=== PATIENT | male | born 1945 | race Caucasian/White ===

== ENCOUNTER 2018-02-27 06:02 | Day surgery (SDC) | payer MEDICARE, BC ==
--- NOTE | 2018-02-26 10:35 | PCM.PREANE ---
Preanesthetic Assessment - Anesthesia/Transfusion/Family Hx Anesthesia History: Prior Anesthesia Without Reaction Family History of Anesthesia Reaction: No Transfusion History: No Prior Transfusion(s) Intubation History: Unknown - Review of Systems General: No Symptoms Pulmonary: No Symptoms (Former smoker:quit in 1971/ETOH occasionally) Cardiovascular: No Symptoms (History of HTN:) Gastrointestinal: No Symptoms (occasional GERD) Neurological: No Symptoms (History of back pain: from left knee pain that resides up to sciatica to back), Dizziness (History of vertigo), Headache ( migraines), Numbness (bilateral toes.), Tingling (History of sciatica) Other: Reports: None (CKD;history of lithrotripsy), Easy Bruising, Diabetes (AM blood sugar: 0636 =149), Sinus Problem (seasonal allergies), Neck Pain (History of cervicalgia) - Physical Assessment NPO Status Date: 02/26/18 NPO Status Time: 22:30 Pulse: 73 O2 Sat by Pulse Oximetry: 97 Respiratory Rate: 16 Blood Pressure: 148/87 Temperature: 36.2 C Height: 1.7 m Weight: 80 kg ASA Class: 2 Mental Status: Alert & Oriented x3 Airway Class: Mallampati = 2 Dentition: Reports: Normal Dentition, Broken Tooth/Teeth, Caries Thyro-Mental Finger Breadths: 3 Mouth Opening Finger Breadths: 3 ROM/Head Extension: Full Lungs: Clear to Auscultation, Normal Respiratory Effort Cardiovascular: Regular Rate, Regular Rhythm, No Murmurs - Lab Values: Laboratory Last Values MRSA (PCR) Negative 02/12/18 15:23 All lab values reviewed and noted and within acceptable ranges to proceed with scheduled procedure. - Imaging/EKG Impressions: EKG: NSR rate=69 CXR: negative - Allergies Allergies/Adverse Reactions: Allergies Allergy/AdvReac Type Severity Reaction Status Date / Time Zwziczb-Cme-Yys Reductase Allergy Muscle Verified 02/26/18 14:25 Inhibitor Aches seafood Allergy Hives Uncoded 02/26/18 14:25 - Anesthesia Plan Pre-Op Medication Ordered: Other (tylenol, oxycodone, and lyrica @0655) - Acknowledgements Anesthesia Type Planned: General Anesthesia, Spinal (with Left adductor canal block under US guidance for post operative pain control requested by Dr. Underwood) Pt an Appropriate Candidate for the Planned Anesthesia: Yes Alternatives and Risks of Anesthesia Discussed w Pt/Guardian: Yes Pt/Guardian Understands and Agrees with Anesthesia Plan: Yes PreAnesthesia Questionnaire - HOME MEDS Home Medications: Home Meds Allopurinol [Zyloprim] 100 mg PO DAILY 02/26/18 [History] Cetirizine [ZyrTEC] 10 mg PO DAILY 02/26/18 [History] Ezetimibe 10 mg PO DAILY 02/26/18 [History] Fish Oil/DHA/EPA [Fish Oil 1,200 MG] 1,200 mg PO DAILY 02/26/18 [History] Flaxseed Oil 1,000 mg PO DAILY 02/26/18 [History] Gluc 2KCl/Chondr/Radha Hy/Hy Ac [Glucosamine & Chondroitin Cap] 1 cap PO DAILY [History] Ketotifen [Ketotifen 0.025% Ophth Soln] 1 drop EYEBOTH DAILY 02/26/18 [History] Meloxicam 7.5 mg PO DAILY PRN 02/26/18 [History] Multivitamin [Daily Multiple Vitamin] 1 tab PO DAILY 02/26/18 [History] Nortriptyline HCl [Pamelor] 10 mg PO BID 02/26/18 [History] Om-3/Dha/Epa/Tuna Oil [Natrol [place]-3 Gummies] 1 tab PO ASDIRECTED 02/26/18 [ History] Potassium Citrate [Urocit-K] 10 meq PO BID 02/26/18 [History] SUMAtriptan Succinate [Imitrex] 100 mg PO ASDIRECTED PRN 02/26/18 [History] amLODIPine Besylate [Norvasc] 5 mg PO DAILY 02/26/18 [History] - CURRENT (IN HOUSE) MEDS Current Meds: Current Medications Acetaminophen (Tylenol) 975 mg PO ONETIME ZACHERY Lactated Ringer's (Ringers, Lactated) 1,000 mls @ 125 mls/hr IV ASDIRECTED ZACHERY Lidocaine/Sodium Bicarbonate (Buffered Lidocaine 1% In Ns 8.4%) 0.25 ml IDERM ONETIME PRN PRN Reason: Prior to IV Start Oxycodone HCl (Oxycontin) 10 mg PO ASDIRECTED ZACHERY Pregabalin (Lyrica) 50 mg PO ONETIME ZACHERY Sodium Chloride (Saline Flush) 10 ml FLUSH ASDIRECTED PRN PRN Reason: Keep Vein Open
[~2018-02-27 06:02] MED LIST: Acetaminophen 325 MG Tab PO SCH; Lactated Ringers 1,000 ML IV SCH; Lidocaine 1%/Sod Bicarbonate in NS 8.4% 1 ML Syringe IDERM PRN; Pregabalin 25 MG Cap PO SCH; Sodium Chloride 0.9% 10 ML Syringe FLUSH PRN; oxyCODONE ER 10 MG TAB.ER PO SCH
[2018-02-27] MEDS ORDERED: Iodine/Sodium Iodide 2% Tincture 30 ML Bottle ONE (06:24)
[2018-02-27] MEDS ORDERED: Bupivacaine 0.75% 30 ML SDV ONE (06:30)
[2018-02-27] MEDS ORDERED: Propofol 200 MG/20 ML SDV ONE (06:30)
[2018-02-27] MEDS ORDERED: ceFAZolin 1 GM Vial ONE (06:30)
[2018-02-27] MEDS ORDERED: Ondansetron 4 MG/2 ML SDV ONE (06:30)
[2018-02-27] MEDS ORDERED: fentaNYL 100 MCG/2 ML SDV ONE (06:30)
[2018-02-27] MEDS ORDERED: Lactated Ringers 1,000 ML ONE ×2 (06:30→08:07)
[2018-02-27] MEDS ORDERED: Lidocaine 1% 14 ML ONE (06:30)
[2018-02-27] MEDS ORDERED: Morphine 2 MG/ML Syringe IVPUSH PRN (06:37)
[2018-02-27] MEDS ORDERED: Bisacodyl 5 MG Tab PO PRN (06:37)
[2018-02-27] MEDS ORDERED: Sennosides 8.6 MG Tab PO PRN (06:37)
[2018-02-27] MEDS ORDERED: Ondansetron 4 MG/2 ML SDV IVPUSH PRN ×2 (06:37→07:29)
[2018-02-27] MEDS ORDERED: Magnesium Hydroxide 400 MG/5 ML Susp 30 ML Cup PO PRN (06:37)
[2018-02-27] MEDS ORDERED: Naloxone 0.4 MG/ML SDV IVPUSH PRN (06:37)
[2018-02-27] MEDS ORDERED: Phenylephrine/Normal Saline 100 MCG/ML 10 ML Syringe ONE ×2 (07:22→08:25)
[2018-02-27] MEDS ORDERED: fentaNYL 100 MCG/2 ML SDV IVPUSH PRN (07:29)
[2018-02-27] MEDS ORDERED: diphenhydrAMINE 50 MG/ML SDV IVPUSH PRN (07:29)
[2018-02-27] MEDS ORDERED: ePHEDrine 50 MG/ML SDV IVPUSH PRN (07:29)
[2018-02-27] MEDS ORDERED: Phenylephrine 1 MG in Sodium Chloride 0.9% 10 ML IV SCH (07:30)
[2018-02-27] MEDS ORDERED: HYDROmorphone 0.5 MG/0.5 ML Syringe IVPUSH PRN (07:30)
[2018-02-27] MEDS ORDERED: ePHEDrine/Normal Saline 25 MG/5 ML Syringe ONE (07:56)
[2018-02-27] MEDS: ceFAZolin 1 GM Vial ONE ×2 (07:57→08:19)
[2018-02-27] MEDS: Morphine 8 MG, EPINEPHrine 0.3 MG, Cefuroxime 750 MG, Ketorolac 30 MG, Sodium Chloride ... ONE ×10 (07:58→08:20)
[2018-02-27] MEDS: Bupivacaine 0.25% 10 ML SDV ONE ×2 (07:58→08:20)
[2018-02-27] MEDS: Vancomycin 1 GM SDV ONE ×2 (07:59→08:35)
[2018-02-27] MEDS ORDERED: Ketamine 500 mg/10 ML MDV ONE (08:17)
[2018-02-27] MEDS ORDERED: Midazolam 1 MG/ML 2 ML SDV ONE (08:17)
[2018-02-27] MEDS ORDERED: EPINEPHrine 1 MG/ML SDV ONE (08:46)
[2018-02-27] MEDS ORDERED: Ropivacaine 0.5% 5 MG/ML 30 ML SDV ONE (08:46)
--- NOTE | 2018-02-27 09:07 | PCM.POSTAN ---
POST ANESTHESIA ASSESSMENT - MENTAL STATUS Mental Status: Alert - VITAL SIGNS Pulse Rate: 67 SaO2: 98 Resp Rate: 21 Blood Pressure: 122/65 Temperature: 36.7 C - RESPIRATORY Respiratory Status: Respiratory Rate WNL, Airway Patent, O2 Saturation Stable, Supplemental Oxygen - CARDIOVASCULAR CV Status: Pulse Rate WNL, Blood Pressure Stable - GASTROINTESTINAL GI Status: No Symptoms - POST OP HYDRATION Hydration Status: Adequate & Stable
--- NOTE | 2018-02-27 09:33 | PCM.SN ---
- Free Text/Narrative Note: Left selective femoral nerve block at the adductor canal for post-procedure pain control under US guidance requested by Dr. Underwood. Time Out: 910 Start: 910 End: 917 Chart reviewed. Consent signed. Questions answered. Appropriate monitors applied. Time out performed. Left mid-shaft femur identified with ultrasound, scanning medially of femur, the femoral artery in the adductor canal visualized , and the femoral nerve located laterally to the artery. The skin was prepped lateral to the ultrasound probe with chlorahexadine times two. The 21ga 4 insulated block needle was inserted under direct ultrasound guidance into the adductor canal. 25mL of 0.5% ropivacaine with 1:200,000 epinephrine was injected circumferentially around the nerve with intermittent negative aspiration noted. Patient tolerated the procedure well. Sterile technique noted along with sterile gloves, mask, and sterile probe cover. See picture on progress note and vital signs on nurses notes. Block completed in PACU. Carrie Contreras CRNA
--- NOTE | 2018-02-27 10:14 | CR ---
Left knee: AP and lateral views of the left knee were obtained. Comparison: No previous study. Knee prosthesis is seen. Components are aligned. Soft tissue air is noted from the surgical procedure. Underlying bony structures are intact. Impression: 1. Satisfactory postop radiographic appearance of recently placed left knee prosthesis. Diagnostic code #2
[2018-02-27] MEDS ORDERED: SUMAtriptan 50 MG Tab PO PRN (10:54)
[2018-02-27] MEDS: Famotidine 20 MG Tab PO SCH ×2 (11:40→17:39)
[2018-02-27] MEDS: Acetaminophen/oxyCODONE 325-5 MG Tab PO PRN ×3 (13:07→22:01)
--- NOTE | 2018-02-27 13:38 | PCM.SN ---
- Free Text/Narrative Note: Patient seen and examined at bedside. He has no complaints or acute issues. His pain is controlled. In fact, he is doing well with PT/OT session. His most recent vitals are Temp of 36.2 C, HR of 68, BP of 118/51 mmHg, and O2 of 93% on RA.
[2018-02-27] MEDS: ceFAZolin 2 GM in Premix Bag 1 BAG IV SCH ×2 (13:55→21:59)
[2018-02-27] MEDS: Docusate Sodium 100 MG Cap PO SCH (22:00)
[2018-02-27] MEDS: Nortriptyline 10 MG Cap PO SCH (22:00)
[2018-02-27] MEDS: Cyclobenzaprine 10 MG Tab PO PRN (22:01)
[2018-02-27] MEDS: POTASSIUM CITRATE 10 MEQ PO SCH (22:03)
[2018-02-28] MEDS: Acetaminophen/oxyCODONE 325-5 MG Tab PO PRN ×2 (04:08→12:37)
--- NOTE | 2018-02-28 06:39 | PCM.SN ---
- Free Text/Narrative Note: Overall Dong is doing well. His pain is controlled and he has been working with therapies. He denies any cp, palpitations, SOB, abdominal pain, sore throat , vision problems, urinary problems, or other concerns. He has urinated and has been ambulating. He complained of some pain with urination. UA obtained and shows moderate bacteria, trace LE, Negative nitrite, and 20-30 WBCs. Will prescribe a 3 day course of cipro. He is post-op day 1 from left TKA. No patient or nursing concerns. Labs and vital signs are stable with Hgb today of 14.2 and eGFR of 50. Preoperative was Hgb of 17.0 and GFR of 53 with a creatinine of 1.31. He is cleared for discharge pending primary team and PT/OT agreement.
[2018-02-28] MEDS: ceFAZolin 2 GM in Premix Bag 1 BAG IV SCH (06:49)
[2018-02-28] MEDS: Famotidine 20 MG Tab PO SCH (06:49)
--- NOTE | 2018-02-28 07:57 | PCM48HPAN ---
Post Anesthesia Note - EVALUATION WITHIN 48HRS OF ANESTHETIC Vital Signs in Normal Range: Yes Patient Participated in Evaluation: Yes Respiratory Function Stable: Yes Airway Patent: Yes Cardiovascular Function Stable: Yes Hydration Status Stable: Yes Pain Control Satisfactory: Yes Nausea and Vomiting Control Satisfactory: Yes Mental Status Recovered: Yes
--- NOTE | 2018-02-28 07:59 | PCM.SURGPN ---
- General Info Date of Service: 02/28/18 POD#: 1 Functional Status: Reports: Pain Controlled, Tolerating Diet, Ambulating, Urinating, Incentive Spirometry, Other (The pt states he had pain during the night and this has improved.) - Patient Data Vitals - Most Recent: Last Vital Signs Temp 98.2 F 02/28/18 04:12 Pulse 84 02/28/18 04:12 Resp 18 02/28/18 04:12 BP 132/71 02/28/18 04:12 Pulse Ox 95 02/28/18 04:12 Weight - Most Recent: 176 lb 5.917 oz I&O - Last 24 Hours: Intake & Output 02/27/18 02/28/18 02/28/18 22:59 06:59 14:59 Intake Total 800 800 Output Total 1800 900 Balance -1000 -100 Lab Results Last 24 Hrs: Laboratory Results - last 24 hr 02/27/18 02/28/18 02/28/18 Range/Units 09:52 05:40 05:40 WBC 10.51 H (4.23-9.07) K/mm3 RBC 4.53 L (4.63-6.08) M/mm3 Hgb 14.2 (13.7-17.5) gm/L Hct 41.1 (40.1-51.0) % MCV 90.7 (79.0-92.2) fl MCH 31.3 (25.7-32.2) pg MCHC 34.5 (32.2-35.5) g/dl RDW Std Deviation 44.1 H (35.1-43.9) fL Plt Count 153 L (163-337) K/mm3 MPV 10.4 (9.4-12.3) fl Sodium 134 L (136-145) mEq/L Potassium 4.3 (3.5-5.1) mEq/L Chloride 99 (98-107) mEq/L Carbon Dioxide 25 (21-32) mEq/L Anion Gap 14.3 (5-15) BUN 14 (7-18) mg/dL Creatinine 1.4 H (0.7-1.3) mg/dL Est Cr Clr Drug Dosing 43.28 mL/min Estimated GFR (MDRD) 50 (>60) mL/min BUN/Creatinine Ratio 10.0 L (14-18) Glucose 172 H (83-115) mg/dL POC Glucose 119 H (83-110) mg/dL Calcium 8.4 L (8.5-10.1) mg/dL Total Bilirubin 0.8 (0.2-1.0) mg/dL AST 27 (15-37) U/L ALT 35 (16-63) U/L Alkaline Phosphatase 79 (46-116) U/L Total Protein 6.6 (6.4-8.2) g/dl Albumin 3.2 L (3.4-5.0) g/dl Globulin 3.4 gm/dL Albumin/Globulin Ratio 0.9 L (1-2) Med Orders - Current: Current Medications Allopurinol (Zyloprim) 100 mg PO DAILY [facility] Amlodipine Besylate (Norvasc) 5 mg PO DAILY [facility] Aspirin (Ecotrin) 325 mg PO BID [facility] Bisacodyl (Dulcolax) 5 mg PO DAILY PRN PRN Reason: Constipation Cyclobenzaprine HCl (Flexeril) 10 mg PO TID PRN PRN Reason: Spasms Last Admin: 02/27/18 22:01 Dose: 10 mg Docusate Sodium (Colace) 100 mg PO BID [facility] Last Admin: 02/27/18 22:00 Dose: Not Given Ezetimibe (Zetia) 10 mg PO DAILY [facility] Famotidine (Pepcid) 20 mg PO Q12H [facility] Last Admin: 02/28/18 06:49 Dose: 20 mg Loratadine (Claritin) 10 mg PO DAILY [facility] Magnesium Hydroxide (Milk Of Magnesia) 30 ml PO BID PRN PRN Reason: Constipation Morphine Sulfate (Morphine) 2 mg IVPUSH Q2H PRN PRN Reason: Breakthrough Pain Last Admin: 02/28/18 00:12 Dose: 2 mg Multivitamins (Thera) 1 each PO DAILY [facility] Naloxone HCl (Narcan) 0.1 mg IVPUSH Q5M PRN PRN Reason: Oversedation Nortriptyline HCl (Nortriptyline) 10 mg PO BID [facility] Last Admin: 02/27/18 22:00 Dose: 10 mg Ondansetron HCl (Zofran) 4 mg IVPUSH Q6H PRN PRN Reason: Nausea/Vomiting Oxycodone/Acetaminophen (Percocet 325-5 Mg) 1 - 2 tab PO Q4H PRN PRN Reason: Pain Last Admin: 02/28/18 04:08 Dose: 2 tab Ketotifen Ophthalmic (Solution 0.025%) 0 each EYEBOTH DAILY [facility] Potassium Citrate [ (Urocit-K] 10 Meq) 0 each PO BID [facility] Last Admin: 02/27/18 22:03 Dose: Not Given Senna (Senna) 8.6 mg PO BID PRN PRN Reason: Constipation Sumatriptan Succinate (Imitrex) 100 mg PO ASDIRECTED PRN PRN Reason: migraine Discontinued Medications Acetaminophen (Tylenol) 975 mg PO ONETIME [facility] Stop: 02/27/18 14:00 Last Admin: 02/27/18 06:53 Dose: 975 mg Bupivacaine HCl (Sensorcaine-Mpf 0.25%) Confirm Administered Dose 30 ml .ROUTE .STK-MED ONE Stop: 02/27/18 06:25 Last Admin: 02/27/18 08:20 Dose: 30 ml Bupivacaine HCl (Sensorcaine-Mpf 0.75%) Confirm Administered Dose 30 ml .ROUTE .STK-MED ONE Stop: 02/27/18 06:31 Cefazolin Sodium (Ancef) Confirm Administered Dose 2 gm .ROUTE .STK-MED ONE Stop: 02/27/18 06:25 Last Admin: 02/27/18 08:19 Dose: 2 gm Cefazolin Sodium (Ancef) Confirm Administered Dose 2 gm .ROUTE .STK-MED ONE Stop: 02/27/18 06:31 Morphine Sulfate 8 mg/Epinephrine HCl 0.3 mg/Cefuroxime Sodium 750 mg/Ketorolac Tromethamine 30 mg/Sodium Chloride 27.9 ml 0 mg .XX ONETIME ONE Stop: 02/27/18 07:31 Last Admin: 02/27/18 08:20 Dose: 788.3 mg Diphenhydramine HCl (Benadryl) 25 mg IVPUSH Q6H PRN PRN Reason: pruritis Stop: 02/27/18 12:00 Ephedrine Sulfate (Ephedrine Sulfate) 5 mg IVPUSH ASDIRECTED PRN PRN Reason: Hypotension Stop: 02/27/18 12:00 Ephedrine Sulfate (Ephedrine In Ns) Confirm Administered Dose 25 mg .ROUTE .STK- MED ONE Stop: 02/27/18 07:57 Epinephrine HCl (Adrenalin) Confirm Administered Dose 1 mg .ROUTE .STK-MED ONE Stop: 02/27/18 08:47 Fentanyl (Sublimaze) Confirm Administered Dose 100 mcg .ROUTE .STK-MED ONE Stop: 02/27/18 06:31 Fentanyl (Sublimaze) 50 mcg IVPUSH Q5M PRN PRN Reason: Pain Stop: 02/27/18 12:00 Hydromorphone HCl (Dilaudid) 0.5 mg IVPUSH ONETIME PRN PRN Reason: Pain Stop: 02/27/18 12:00 Lactated Ringer's (Ringers, Lactated) 1,000 mls @ 125 mls/hr IV ASDIRECTED ZACHERY Stop: 02/27/18 23:00 Last Admin: 02/27/18 06:35 Dose: 125 mls/hr Lidocaine HCl (Xylocaine-Mpf 1%) Confirm Administered Dose 14 mls @ as directed .ROUTE .STK-MED ONE Stop: 02/27/18 06:31 Lactated Ringer's (Ringers, Lactated) Confirm Administered Dose 1,000 mls @ as directed .ROUTE .STK-MED ONE Stop: 02/27/18 06:31 Cefazolin Sodium/Dextrose 2 gm (/ Premix) 50 mls @ 100 mls/hr IV Q8H ZACHERY Stop: 02/28/18 06:59 Last Admin: 02/28/18 06:49 Dose: 100 mls/hr Phenylephrine HCl 1 mg/ Sodium (Chloride) 10.1 mls @ 1 mls/sec IV TITRATE ZACHERY; Protocol Stop: 02/27/18 12:00 Lactated Ringer's (Ringers, Lactated) Confirm Administered Dose 1,000 mls @ as directed .ROUTE .STK-MED ONE Stop: 02/27/18 08:08 Iodine (Iodine 2% Mild Tincture) Confirm Administered Dose 30 ml .ROUTE .STK- MED ONE Stop: 02/27/18 06:25 Ketamine HCl (Ketalar) Confirm Administered Dose 500 mg .ROUTE .STK-MED ONE Stop: 02/27/18 08:18 Lidocaine/Sodium Bicarbonate (Buffered Lidocaine 1% In Ns 8.4%) 0.25 ml IDERM ONETIME PRN PRN Reason: Prior to IV Start Stop: 02/27/18 18:00 Last Admin: 02/27/18 06:34 Dose: 0.25 ml Midazolam HCl (Versed 1 Mg/Ml) Confirm Administered Dose 2 mg .ROUTE .STK-MED ONE Stop: 02/27/18 08:18 Non-Formulary Medication (Gluc 2kcl/Chondr/Radha Hy/Hy Ac [Glucosamine & Chondroitin Cap]) 1 cap PO DAILY [facility] Ondansetron HCl (Zofran) Confirm Administered Dose 4 mg .ROUTE .STK-MED ONE Stop: 02/27/18 06:31 Ondansetron HCl (Zofran) 4 mg IVPUSH ONETIME PRN PRN Reason: Nausea/Vomiting Stop: 02/27/18 12:00 Oxycodone HCl (Oxycontin) 10 mg PO ASDIRECTED [facility] Stop: 02/27/18 18:00 Last Admin: 02/27/18 06:53 Dose: 10 mg Phenylephrine HCl (Phenylephrine In Ns 100 Mcg/Ml) Confirm Administered Dose 1 mg .ROUTE .STK-MED ONE Stop: 02/27/18 07:23 Phenylephrine HCl (Phenylephrine In Ns 100 Mcg/Ml) Confirm Administered Dose 1 mg .ROUTE .STK-MED ONE Stop: 02/27/18 08:26 Pregabalin (Lyrica) 50 mg PO ONETIME [facility] Stop: 02/27/18 18:00 Last Admin: 02/27/18 06:53 Dose: 50 mg Propofol (Diprivan 20 Ml) Confirm Administered Dose 400 mg .ROUTE .STK-MED ONE Stop: 02/27/18 06:31 Ropivacaine (Naropin 0.5%) Confirm Administered Dose 30 ml .ROUTE .STK-MED ONE Stop: 02/27/18 08:47 Sodium Chloride (Saline Flush) 10 ml FLUSH ASDIRECTED PRN PRN Reason: Keep Vein Open Stop: 02/27/18 18:00 Tranexamic Acid (Cyklokapron) Confirm Administered Dose 1,000 mg .ROUTE .STK- MED ONE Stop: 02/27/18 06:25 Last Admin: 02/27/18 08:39 Dose: 1,000 mg Vancomycin HCl (Vancomycin) Confirm Administered Dose 1 gm .ROUTE .STK-MED ONE Stop: 02/27/18 06:25 Last Admin: 02/27/18 08:35 Dose: 1 gm - Exam Wound/Incisions: Dressing Dry and Intact General: Alert, Cooperative, No Acute Distress Lungs: Normal Respiratory Effort Extremities: Other (NVS intact for LLE. Kimber's negative.) - Problem List Review Problem List Initiated/Reviewed/Updated: Yes - My Orders Last 24 Hours: Active Orders 24 hr Category Date Time Status Cooling Warming Measures [RC] ASDIRECTED Care 02/27/18 07:29 Inactive Notify Provider [RC] ASDIRECTED Care 02/27/18 07:29 Active Pulse Oximetry [RC] ASDIRECTED Care 02/27/18 07:29 Active Ready for Discharge [RC] PER UNIT ROUTINE Care 02/28/18 07:57 Ordered Vital Signs [RC] Q4H Care 02/27/18 11:03 Active Regular Diet [DIET] Diet 02/27/18 Lunch Active Allopurinol [Zyloprim] Med 02/28/18 09:00 Active 100 mg PO DAILY Aspirin [Ecotrin] Med 02/28/18 09:00 Active 325 mg PO BID Docusate Sodium [Colace] Med 02/27/18 21:00 Active 100 mg PO BID Ezetimibe [Zetia] Med 02/28/18 09:00 Active 10 mg PO DAILY Loratadine [Claritin] Med 02/28/18 09:00 Active 10 mg PO DAILY Multivitamins,Therapeutic [Thera] Med 02/28/18 09:00 Active 1 each PO DAILY Nortriptyline Med 02/27/18 21:00 Active 10 mg PO BID Patient's Own Medication [Ptom] Med 02/28/18 09:00 Active 0 each EYEBOTH DAILY Patient's Own Medication [Ptom] Med 02/27/18 21:00 Active 0 each PO BID SUMAtriptan [Imitrex] Med 02/27/18 10:54 Active 100 mg PO ASDIRECTED PRN amLODIPine [Norvasc] Med 02/28/18 09:00 Active 5 mg PO DAILY Medication Orders Allopurinol (Zyloprim) 100 mg PO DAILY [facility] Amlodipine Besylate (Norvasc) 5 mg PO DAILY [facility] Aspirin (Ecotrin) 325 mg PO BID [facility] Bisacodyl (Dulcolax) 5 mg PO DAILY PRN PRN Reason: Constipation Cyclobenzaprine HCl (Flexeril) 10 mg PO TID PRN PRN Reason: Spasms Last Admin: 02/27/18 22:01 Dose: 10 mg Docusate Sodium (Colace) 100 mg PO BID [facility] Last Admin: 02/27/18 22:00 Dose: Not Given Ezetimibe (Zetia) 10 mg PO DAILY [facility] Famotidine (Pepcid) 20 mg PO Q12H [facility] Last Admin: 02/28/18 06:49 Dose: 20 mg Admin: 02/27/18 17:39 Dose: 20 mg Admin: 02/27/18 11:40 Dose: Loratadine (Claritin) 10 mg PO DAILY [facility] Magnesium Hydroxide (Milk Of Magnesia) 30 ml PO BID PRN PRN Reason: Constipation Morphine Sulfate (Morphine) 2 mg IVPUSH Q2H PRN PRN Reason: Breakthrough Pain Last Admin: 02/28/18 00:12 Dose: 2 mg Multivitamins (Thera) 1 each PO DAILY [facility] Naloxone HCl (Narcan) 0.1 mg IVPUSH Q5M PRN PRN Reason: Oversedation Nortriptyline HCl (Nortriptyline) 10 mg PO BID [facility] Last Admin: 02/27/18 22:00 Dose: 10 mg Ondansetron HCl (Zofran) 4 mg IVPUSH Q6H PRN PRN Reason: Nausea/Vomiting Oxycodone/Acetaminophen (Percocet 325-5 Mg) 1 - 2 tab PO Q4H PRN PRN Reason: Pain Last Admin: 02/28/18 04:08 Dose: 2 tab Admin: 02/27/18 22:01 Dose: 2 tab Admin: 02/27/18 18:38 Dose: 2 tab Admin: 02/27/18 13:07 Dose: 2 tab Ketotifen Ophthalmic (Solution 0.025%) 0 each EYEBOTH DAILY [facility] Potassium Citrate [ (Urocit-K] 10 Meq) 0 each PO BID [facility] Last Admin: 02/27/18 22:03 Dose: Senna (Senna) 8.6 mg PO BID PRN PRN Reason: Constipation Sumatriptan Succinate (Imitrex) 100 mg PO ASDIRECTED PRN PRN Reason: migraine - Assessment Assessment (Free Text/Narrative):: POD#1 - left TKA - Plan Plan (Free Text/Narrative):: 1. Hgb 14.2. 2. Discharge to home today. 3. 325mg ASA BID, frequent mobility, TEDs. 4. Outpatient P.T. The pt's case was discussed with Dr. Underwood.
--- NOTE | 2018-02-28 08:00 | PCM.DCSUM1 ---
Discharge Summary - Hospital Course Brief History: Dong is a 72 yo male who underwent left TKA with Dr. Underwood on . The procedure was completed under spinal anesthesia with sedation. The pt tolerated the procedure well and was admitted to the Medical-Surgical Unit. Medical management was provided by the Hospitalist service. The pt's Hospital course was uneventful. The pt's Hgb on POD#1 was 14.2. On POD#1, 325mg ASA BID was initiated for VTE prophylaxis. SCDs and TEDs were also ordered. A Mepilex dressing was placed at the incision site at the time of surgery and remained clean and dry. The pt participated in P.T. and O.T. and progressed well. The pt was allowed to WBAT. On POD#1, the pt was deemed appropriate to discharge to home with his . - Discharge Data Discharge Date: 02/28/18 Discharge Disposition: Home, Self-Care 01 Condition: Good - Patient Summary/Data Consults: Consultations 02/27/18 06:36 OT Evaluation and Treatment [CONS] Routine PT Evaluation and Treatment [CONS] Routine 02/27/18 06:37 Consult to Physician [CONS] Routine - Patient Instructions Diet: Usual Diet as Tolerated Activity: Apply Ice, As Tolerated, Elevate Extremity, Full Weight Bearing Driving: Do Not Drive Showering/Bathing: May Shower Wound/Incision Care: Keep Operative Site/Wound Site Clean and Dry, Do NOT Change Dressing Notify Provider of: Fever, Increased Pain, Swelling and Redness, Drainage, Nausea and/or Vomiting Other/Special Instructions: Please get up and moving around EVERY HOUR while awake. This helps to prevent blood clots. Have help with mobility as needed. Please take 325mg aspirin twice daily - this also helps to prevent blood clots. The medication is being used for blood clot prevention and not for pain control, so please use the medication twice daily as directed. Please wear the BARTOLO hose during the day and you may remove them at night. Please schedule for P.T. Complete the P.T. exercises and stretches that were instructed in the Hospital. Please use the pain medication as needed. The medication may cause drowsiness and/or constipation. You could use a stool softener like docusate sodium or Colace 100mg twice daily and/or a laxative like Miralax daily for constipation. Contact your primary care provider for further instructions if you are constipated. Try to wean from use of the pain medication as soon as able. Please do not use other medications that may cause drowsiness (other pain medications, anxiety pills, sleeping pills, allergy medications that cause drowsiness) while using the pain medication. Please do not use alcohol while using the pain medication. Use the incentive spirometer often. Please place ice to the knee often. Please elevate the limb to decrease swelling. Keep the Mepilex dressing in place until follow-up. Please notify the Clinic if the dressing is saturated or rolls. Increase protein intake in your diet as this helps with healing. If you are a diabetic, please closely monitor your blood sugars and notify your primary care provider of your values. Elevated blood sugars increases the risk of infection. Please call [phone] with questions or concerns. - Discharge Plan *PRESCRIPTION DRUG MONITORING PROGRAM REVIEWED*: No *COPY OF PRESCRIPTION DRUG MONITORING REPORT IN PATIENT MANUELA: No Prescriptions/Med Rec: Acetaminophen/oxyCODONE [Percocet 325-5 MG] 1 - 2 tab PO Q6H PRN #60 tablet PRN Reason: Pain Aspirin [Ecotrin] 325 mg PO BID #84 tab.ec Home Medications: Home Meds Allopurinol [Zyloprim] 100 mg PO DAILY 02/26/18 [History] Cetirizine [ZyrTEC] 10 mg PO DAILY 02/26/18 [History] Ezetimibe 10 mg PO DAILY 02/26/18 [History] Gluc 2KCl/Chondr/Radha Hy/Hy Ac [Glucosamine & Chondroitin Cap] 1 cap PO DAILY [History] Ketotifen [Ketotifen 0.025% Oph Soln] 1 drop EYEBOTH DAILY 02/26/18 [History] Multivitamin [Daily Multiple Vitamin] 1 tab PO DAILY 02/26/18 [History] Nortriptyline HCl [Pamelor] 10 mg PO BID 02/26/18 [History] Potassium Citrate [Urocit-K] 10 meq PO BID 02/26/18 [History] SUMAtriptan Succinate [Imitrex] 100 mg PO ASDIRECTED PRN 02/26/18 [History] amLODIPine Besylate [Norvasc] 5 mg PO DAILY 02/26/18 [History] Acetaminophen/oxyCODONE [Percocet 325-5 MG] 1 - 2 tab PO Q6H PRN #60 tablet [Rx] Aspirin [Ecotrin] 325 mg PO BID #84 tab.ec 02/28/18 [Rx] Bisacodyl [Dulcolax] 5 mg PO DAILY PRN tablet 02/28/18 [Rx] Docusate Sodium [Colace] 100 mg PO BID cap 02/28/18 [Rx] Famotidine [Pepcid] 20 mg PO Q12H tablet 02/28/18 [Rx] Sennosides [Senna] 8.6 mg PO BID PRN tablet 02/28/18 [Rx] Referrals: Marilia Vergara, DANIEL [Physician Manager Marketing Sales] - - Patient Data Vitals - Most Recent: Last Vital Signs Temp 98.2 F 02/28/18 04:12 Pulse 84 02/28/18 04:12 Resp 18 02/28/18 04:12 BP 132/71 02/28/18 04:12 Pulse Ox 95 02/28/18 04:12 Weight - Most Recent: 176 lb 5.917 oz I&O - Last 24 hours: Intake & Output 02/27/18 02/28/18 02/28/18 22:59 06:59 14:59 Intake Total 800 800 Output Total 1800 900 Balance -1000 -100 Lab Results - Last 24 hrs: Laboratory Results - last 24 hr 02/27/18 02/28/18 02/28/18 Range/Units 09:52 05:40 05:40 WBC 10.51 H (4.23-9.07) K/mm3 RBC 4.53 L (4.63-6.08) M/mm3 Hgb 14.2 (13.7-17.5) gm/L Hct 41.1 (40.1-51.0) % MCV 90.7 (79.0-92.2) fl MCH 31.3 (25.7-32.2) pg MCHC 34.5 (32.2-35.5) g/dl RDW Std Deviation 44.1 H (35.1-43.9) fL Plt Count 153 L (163-337) K/mm3 MPV 10.4 (9.4-12.3) fl Sodium 134 L (136-145) mEq/L Potassium 4.3 (3.5-5.1) mEq/L Chloride 99 (98-107) mEq/L Carbon Dioxide 25 (21-32) mEq/L Anion Gap 14.3 (5-15) BUN 14 (7-18) mg/dL Creatinine 1.4 H (0.7-1.3) mg/dL Est Cr Clr Drug Dosing 43.28 mL/min Estimated GFR (MDRD) 50 (>60) mL/min BUN/Creatinine Ratio 10.0 L (14-18) Glucose 172 H (83-115) mg/dL POC Glucose 119 H (83-110) mg/dL Calcium 8.4 L (8.5-10.1) mg/dL Total Bilirubin 0.8 (0.2-1.0) mg/dL AST 27 (15-37) U/L ALT 35 (16-63) U/L Alkaline Phosphatase 79 (46-116) U/L Total Protein 6.6 (6.4-8.2) g/dl Albumin 3.2 L (3.4-5.0) g/dl Globulin 3.4 gm/dL Albumin/Globulin Ratio 0.9 L (1-2) Med Orders - Current: Current Medications Allopurinol (Zyloprim) 100 mg PO DAILY [facility] Amlodipine Besylate (Norvasc) 5 mg PO DAILY [facility] Aspirin (Ecotrin) 325 mg PO BID [facility] Bisacodyl (Dulcolax) 5 mg PO DAILY PRN PRN Reason: Constipation Cyclobenzaprine HCl (Flexeril) 10 mg PO TID PRN PRN Reason: Spasms Last Admin: 02/27/18 22:01 Dose: 10 mg Docusate Sodium (Colace) 100 mg PO BID [facility] Last Admin: 02/27/18 22:00 Dose: Not Given Ezetimibe (Zetia) 10 mg PO DAILY [facility] Famotidine (Pepcid) 20 mg PO Q12H [facility] Last Admin: 02/28/18 06:49 Dose: 20 mg Loratadine (Claritin) 10 mg PO DAILY [facility] Magnesium Hydroxide (Milk Of Magnesia) 30 ml PO BID PRN PRN Reason: Constipation Morphine Sulfate (Morphine) 2 mg IVPUSH Q2H PRN PRN Reason: Breakthrough Pain Last Admin: 02/28/18 00:12 Dose: 2 mg Multivitamins (Thera) 1 each PO DAILY [facility] Naloxone HCl (Narcan) 0.1 mg IVPUSH Q5M PRN PRN Reason: Oversedation Nortriptyline HCl (Nortriptyline) 10 mg PO BID [facility] Last Admin: 02/27/18 22:00 Dose: 10 mg Ondansetron HCl (Zofran) 4 mg IVPUSH Q6H PRN PRN Reason: Nausea/Vomiting Oxycodone/Acetaminophen (Percocet 325-5 Mg) 1 - 2 tab PO Q4H PRN PRN Reason: Pain Last Admin: 02/28/18 04:08 Dose: 2 tab Ketotifen Ophthalmic (Solution 0.025%) 0 each EYEBOTH DAILY [facility] Potassium Citrate [ (Urocit-K] 10 Meq) 0 each PO BID [facility] Last Admin: 02/27/18 22:03 Dose: Not Given Senna (Senna) 8.6 mg PO BID PRN PRN Reason: Constipation Sumatriptan Succinate (Imitrex) 100 mg PO ASDIRECTED PRN PRN Reason: migraine Discontinued Medications Acetaminophen (Tylenol) 975 mg PO ONETIME [facility] Stop: 02/27/18 14:00 Last Admin: 02/27/18 06:53 Dose: 975 mg Bupivacaine HCl (Sensorcaine-Mpf 0.25%) Confirm Administered Dose 30 ml .ROUTE .STK-MED ONE Stop: 02/27/18 06:25 Last Admin: 02/27/18 08:20 Dose: 30 ml Bupivacaine HCl (Sensorcaine-Mpf 0.75%) Confirm Administered Dose 30 ml .ROUTE .STK-MED ONE Stop: 02/27/18 06:31 Cefazolin Sodium (Ancef) Confirm Administered Dose 2 gm .ROUTE .STK-MED ONE Stop: 02/27/18 06:25 Last Admin: 02/27/18 08:19 Dose: 2 gm Cefazolin Sodium (Ancef) Confirm Administered Dose 2 gm .ROUTE .STK-MED ONE Stop: 02/27/18 06:31 Morphine Sulfate 8 mg/Epinephrine HCl 0.3 mg/Cefuroxime Sodium 750 mg/Ketorolac Tromethamine 30 mg/Sodium Chloride 27.9 ml 0 mg .XX ONETIME ONE Stop: 02/27/18 07:31 Last Admin: 02/27/18 08:20 Dose: 788.3 mg Diphenhydramine HCl (Benadryl) 25 mg IVPUSH Q6H PRN PRN Reason: pruritis Stop: 02/27/18 12:00 Ephedrine Sulfate (Ephedrine Sulfate) 5 mg IVPUSH ASDIRECTED PRN PRN Reason: Hypotension Stop: 02/27/18 12:00 Ephedrine Sulfate (Ephedrine In Ns) Confirm Administered Dose 25 mg .ROUTE .STK- MED ONE Stop: 02/27/18 07:57 Epinephrine HCl (Adrenalin) Confirm Administered Dose 1 mg .ROUTE .STK-MED ONE Stop: 02/27/18 08:47 Fentanyl (Sublimaze) Confirm Administered Dose 100 mcg .ROUTE .STK-MED ONE Stop: 02/27/18 06:31 Fentanyl (Sublimaze) 50 mcg IVPUSH Q5M PRN PRN Reason: Pain Stop: 02/27/18 12:00 Hydromorphone HCl (Dilaudid) 0.5 mg IVPUSH ONETIME PRN PRN Reason: Pain Stop: 02/27/18 12:00 Lactated Ringer's (Ringers, Lactated) 1,000 mls @ 125 mls/hr IV ASDIRECTED ZACHERY Stop: 02/27/18 23:00 Last Admin: 02/27/18 06:35 Dose: 125 mls/hr Lidocaine HCl (Xylocaine-Mpf 1%) Confirm Administered Dose 14 mls @ as directed .ROUTE .STK-MED ONE Stop: 02/27/18 06:31 Lactated Ringer's (Ringers, Lactated) Confirm Administered Dose 1,000 mls @ as directed .ROUTE .STK-MED ONE Stop: 02/27/18 06:31 Cefazolin Sodium/Dextrose 2 gm (/ Premix) 50 mls @ 100 mls/hr IV Q8H ZACHERY Stop: 02/28/18 06:59 Last Admin: 02/28/18 06:49 Dose: 100 mls/hr Phenylephrine HCl 1 mg/ Sodium (Chloride) 10.1 mls @ 1 mls/sec IV TITRATE ZACHERY; Protocol Stop: 02/27/18 12:00 Lactated Ringer's (Ringers, Lactated) Confirm Administered Dose 1,000 mls @ as directed .ROUTE .STK-MED ONE Stop: 02/27/18 08:08 Iodine (Iodine 2% Mild Tincture) Confirm Administered Dose 30 ml .ROUTE .STK- MED ONE Stop: 02/27/18 06:25 Ketamine HCl (Ketalar) Confirm Administered Dose 500 mg .ROUTE .STK-MED ONE Stop: 02/27/18 08:18 Lidocaine/Sodium Bicarbonate (Buffered Lidocaine 1% In Ns 8.4%) 0.25 ml IDERM ONETIME PRN PRN Reason: Prior to IV Start Stop: 02/27/18 18:00 Last Admin: 02/27/18 06:34 Dose: 0.25 ml Midazolam HCl (Versed 1 Mg/Ml) Confirm Administered Dose 2 mg .ROUTE .STK-MED ONE Stop: 02/27/18 08:18 Non-Formulary Medication (Gluc 2kcl/Chondr/Radha Hy/Hy Ac [Glucosamine & Chondroitin Cap]) 1 cap PO DAILY [facility] Ondansetron HCl (Zofran) Confirm Administered Dose 4 mg .ROUTE .STK-MED ONE Stop: 02/27/18 06:31 Ondansetron HCl (Zofran) 4 mg IVPUSH ONETIME PRN PRN Reason: Nausea/Vomiting Stop: 02/27/18 12:00 Oxycodone HCl (Oxycontin) 10 mg PO ASDIRECTED [facility] Stop: 02/27/18 18:00 Last Admin: 02/27/18 06:53 Dose: 10 mg Phenylephrine HCl (Phenylephrine In Ns 100 Mcg/Ml) Confirm Administered Dose 1 mg .ROUTE .STK-MED ONE Stop: 02/27/18 07:23 Phenylephrine HCl (Phenylephrine In Ns 100 Mcg/Ml) Confirm Administered Dose 1 mg .ROUTE .STK-MED ONE Stop: 02/27/18 08:26 Pregabalin (Lyrica) 50 mg PO ONETIME [facility] Stop: 02/27/18 18:00 Last Admin: 02/27/18 06:53 Dose: 50 mg Propofol (Diprivan 20 Ml) Confirm Administered Dose 400 mg .ROUTE .STK-MED ONE Stop: 02/27/18 06:31 Ropivacaine (Naropin 0.5%) Confirm Administered Dose 30 ml .ROUTE .STK-MED ONE Stop: 02/27/18 08:47 Sodium Chloride (Saline Flush) 10 ml FLUSH ASDIRECTED PRN PRN Reason: Keep Vein Open Stop: 02/27/18 18:00 Tranexamic Acid (Cyklokapron) Confirm Administered Dose 1,000 mg .ROUTE .STK- MED ONE Stop: 02/27/18 06:25 Last Admin: 02/27/18 08:39 Dose: 1,000 mg Vancomycin HCl (Vancomycin) Confirm Administered Dose 1 gm .ROUTE .STK-MED ONE Stop: 02/27/18 06:25 Last Admin: 02/27/18 08:35 Dose: 1 gm
[2018-02-28] MEDS ORDERED: Loratadine 10 MG Tab PO SCH (09:00)
[2018-02-28] MEDS ORDERED: KETOTIFEN 0.025% EYEBOTH SCH (09:00)
[2018-02-28] MEDS ORDERED: Aspirin 325 MG Tab.EC PO SCH (09:00)
[2018-02-28] MEDS ORDERED: Ezetimibe 10 MG Tab PO SCH (09:00)
[2018-02-28] MEDS ORDERED: Multivitamins,Therapeutic Tab PO SCH (09:00)
[2018-02-28] MEDS ORDERED: Allopurinol 100 MG Tab PO SCH (09:00)
[2018-02-28] MEDS ORDERED: amLODIPine 5 MG Tab PO SCH (09:00)
[2018-02-28] MEDS ORDERED: Non-Formulary Medication 1 Each (Gluc 2kcl/Chondr/Coll Hy/Hy Ac [Glucosamine & Chondroitin PO SCH (09:00)
[2018-02-28] MEDS: Nortriptyline 10 MG Cap PO SCH (09:16)
[2018-02-28] MEDS: Docusate Sodium 100 MG Cap PO SCH (09:23)
[2018-02-28] MEDS: Cyclobenzaprine 10 MG Tab PO PRN (09:23)
[2018-02-28] MEDS: POTASSIUM CITRATE 10 MEQ PO SCH (09:25)
--- NOTE | 2018-03-11 07:04 | PCM.OPNOTE ---
- General Post-Op/Procedure Note Date of Surgery/Procedure: 02/27/18 Operative Procedure(s): left total knee arthroplasty Pre Op Diagnosis: left knee osteoarhtrosis Post-Op Diagnosis: Same Anesthesia Technique: Local, MAC, Spinal Primary Surgeon: Christopher Underwood Anesthesia Provider: Carrie Contreras Auto Service Mechanic: Marilia Vergara Auto Service Mechanic: Daly Perkins in mLs: 5 Complications: None Condition: Good
--- NOTE | 2018-03-11 15:22 | OR ---
DATE OF OPERATION: 02/27/2018 SURGEON: Christopher Underwood MD OPERATION PERFORMED: Left total knee arthroplasty. PREOPERATIVE DIAGNOSIS: Left knee osteoarthrosis. POSTOPERATIVE DIAGNOSIS: Left knee osteoarthrosis. ANESTHESIA: Local MAC with spinal. ANESTHESIA PROVIDER: Carrie Contreras CRNA ASSISTANTS: 1. Marilia Vergara PA-C. 2. Daly Perkins LPN. ESTIMATED BLOOD LOSS: 5 mL. COMPLICATIONS: None. CONDITION: Stable. IMPLANTS: 1. Red Oak size 5 PS femur. 2. Fahad size 4 universal tibial baseplate. 3. Fahad size 4, 9 mm PS X3 polyethylene. 4. Red Oak size 32 x 10 mm cemented patella. DESCRIPTION OF PROCEDURE: The patient was identified in the preop holding area. Proper site was marked and identified by the surgeon. The patient was taken back to the operating theater. After adequate anesthesia, the patient's left lower extremity had a nonsterile tourniquet applied and it was then sterilely prepped and draped in the usual sterile fashion. OR timeout was performed. The patient received 2 g IV Ancef. At this time, left lower extremity was exsanguinated. Tourniquet was insufflated to 300 mmHg. Standard medial parapatellar incision was made. Medial parapatellar arthrotomy was created. Deep fibers of the MCL were raised and anterior fat pad was resected. At this time, attention was turned to the patella. Patella measured 23, it was resected to a 13 for a 32 x 10 patella. Drill holes were then drilled and found to be in adequate position. The drill was then drilled in the distal femur and the intramedullary distal femoral cutting guide was then placed. 8 mm was resected off the distal femur and was found to be an adequate resection. Sizing guide was placed. It was found to be a size 5 femur that was shown on the implant record at the beginning of this dictation. The drill holes were drilled for the epicondylar axis using Whitesides line and epicondyles as reference. At this time, the 4-in-1 cutting block was placed. An anterior posterior and anterior and posterior chamfer cuts were then completed. The correct size box cut was then placed and the box cut was completed and found to be an adequate resection. Attention was turned to the tibia. The posterior medial lateral retractors were placed. The extramedullary tibial guide was placed. It was placed in the old footprint of the ACL. It was aligned with the center of the ankle and 0 degrees of slope, 9 mm was then resected off the unaffected lateral side. There was found to be an acceptable reduction. At this time, posterior osteophytes were removed along with medial and lateral meniscus. A trial implant was placed with a correct sized tibia that was mentioned at the beginning of the dictation. A Red Oak size 4, 9 mm PS X3 polyethylene was then placed. The patient's knee was brought through range of motion. The patella was tracking centrally and was stable to varus and valgus stress. Alignment was found to be roughly at 0 degrees. At this time, cement was mixed on the back table. The tibia was stamped and drilled in proper rotation. All cut surfaces were irrigated with pulse lavage irrigation with Ancef and then completely dried. Once this was completed, then the cement was ready. The universal tibial base plate was cemented in place. Next, the Red Oak size 5 PS femur cemented into place and the Red Oak size 4, 9 mm PS X3 polyethylene was placed. The patient's knee was brought into full extension. Excess cement was removed. The patella was then cemented in place at this time. Tourniquet was deflated. One liter dilute Betadine solution was irrigated through the knee along with 3 L of pulse lavage irrigation with Ancef. Periarticular injection was then completed. The patient's knee was brought through a range of motion. Once the cement had time to set up and it was found to be stable to varus valgus stress, the patella was tracking centrally with full range of motion. At this time, a #2 barbed suture was used for closure of the medial parapatellar arthrotomy. Topical tranexamic acid was placed. 2-0 Vicryl was used subcutaneously, a running 3-0 Monocryl was used subcuticularly. The patient tolerated the procedure well and was sent to the PACU in stable condition. MMODAL /[id number]
== END 2018-02-28 12:43 | disposition home or self-care (01) ==
LOC: JD.SDS 06:02 → JD.MS 06:06 → JD.SDS 02-28 12:43
PROVIDERS: ATTEND Orthopaedic Surgery
DX: M17.12 Unilateral primary osteoarthritis, left knee (principal); I12.9 Hypertensive chronic kidney disease with stage 1 through stage 4 chronic kidney disease, or unspecified chronic kidney disease; E11.22 Type 2 diabetes mellitus with diabetic chronic kidney disease; N18.9 Chronic kidney disease, unspecified; Z87.891 Personal history of nicotine dependence; Z79.82 Long term (current) use of aspirin; Z79.899 Other long term (current) drug therapy; Z88.8 Allergy status to other drugs, medicaments and biological substances
CPT/HCPCS: 27447; 36415; 64447; 73560; 80053; 81001; 82962; 85027; 87086; 87641; 97110; 97116; 97161; 97165; 97530; 97535; A9270; C1713; C1776; J0171; J0690; J0697; J1885; J2250; J2270; J2370; J2405; J2704; J2795; J3010; J3370; J3490; J7050; J7120; 01402; 64450; J2001

== ENCOUNTER 2019-11-19 07:58 | Day surgery (SDC) | payer MEDICARE, BC ==
[~2019-11-19 07:58] MED LIST changes: -Acetaminophen 325 MG Tab PO SCH; +Ketamine 500 mg/10 ML MDV ONE; +Midazolam 1 MG/ML 2 ML SDV ONE; -Pregabalin 25 MG Cap PO SCH; +Propofol 200 MG/20 ML SDV ONE; +fentaNYL 100 MCG/2 ML SDV ONE; -oxyCODONE ER 10 MG TAB.ER PO SCH
[2019-11-19] MEDS ORDERED: Lidocaine 1% 50 ML MDV ONE (08:29)
[2019-11-19] MEDS ORDERED: Bupivacaine 0.25% 10 ML SDV ONE (08:29)
[2019-11-19] MEDS ORDERED: ceFAZolin 1 GM Vial ONE (08:31)
--- NOTE | 2019-11-23 07:21 | PCM.OPNOTE ---
- General Post-Op/Procedure Note Date of Surgery/Procedure: 11/19/19 Operative Procedure(s): right ring finger a1 jakub release Pre Op Diagnosis: right ring finger stenosing tenosynovitis Post-Op Diagnosis: Same Anesthesia Technique: Local Primary Surgeon: Christopher DINERO in mLs: 5 Complications: None Condition: Good
--- NOTE | 2019-11-24 08:28 | OR ---
DATE OF OPERATION: 11/19/2019 SURGEON: Christopher Underwood MD OPERATION PERFORMED: Right ring finger A1 jakub release. PREOPERATIVE DIAGNOSIS: Right ring finger stenosing tenosynovitis. POSTOPERATIVE DIAGNOSIS: Right ring finger stenosing tenosynovitis. ANESTHESIA: Local only. ESTIMATED BLOOD LOSS: 5 mL. COMPLICATIONS: None. CONDITION: Stable. DESCRIPTION OF PROCEDURE: The patient was identified in the preop holding area. Proper site was marked and identified by the surgeon. The patient was taken back to the operating theater where after adequate anesthesia, the patient's right upper extremity was sterilely prepped and draped in the usual sterile fashion. OR time-out was performed. The patient received 2 g IV Ancef. At this time, 0.25% Marcaine as well as 1% lidocaine was used to anesthetize the A1 jakub site. Esmarch was then utilized as a tourniquet on the forearm. A standard transverse incision was made. This was taken down to the A1 jakub. Ragnell retractors were then utilized to protect the neurovascular bundles. With the use of a [place] blade, the A1 jakub was then resected both proximally and distally. The patient was noted to have a large amount of scar tissue. The tendon itself had no tendinous adhesions, was brought through the wound bed. The patient was able to make a fist back and forth and had no signs of triggering. Adequate saline was irrigated through the wound, 4-0 nylon suture was used for closure of the skin, and the patient was placed in a sterile soft dressing and sent to PACU in stable condition. RAUL /[id number]
== END 2019-11-19 10:54 | disposition home or self-care (01) ==
LOC: JD.SDS 07:58
PROVIDERS: ATTEND Orthopaedic Surgery
DX: M65.341 Trigger finger, right ring finger (principal); I12.9 Hypertensive chronic kidney disease with stage 1 through stage 4 chronic kidney disease, or unspecified chronic kidney disease; E11.22 Type 2 diabetes mellitus with diabetic chronic kidney disease; N18.9 Chronic kidney disease, unspecified; E78.5 Hyperlipidemia, unspecified; M54.12 Radiculopathy, cervical region; N52.9 Male erectile dysfunction, unspecified; M54.5 Low back pain; M25.551 Pain in right hip; Z11.59 Encounter for screening for other viral diseases; Z87.891 Personal history of nicotine dependence; Z79.899 Other long term (current) drug therapy; Z91.013 Allergy to seafood; Z88.8 Allergy status to other drugs, medicaments and biological substances
CPT/HCPCS: 26055; 87641; J0690; J2001; J3490; U0002; J2250; J2704; J3010

== ENCOUNTER 2021-02-17 14:33 | Emergency (ER) | payer MEDICARE, BC ==
[2021-02-17] MEDS ORDERED: Lidocaine 1% 10 ML MDV INJECT ONE ×2 (14:46→15:08)
[2021-02-17] MEDS ORDERED: Diphtheria,Pertussis(Acell),Tetanus Vaccine 0.5 ML Syringe IM ONE (14:49)
--- NOTE | 2021-02-17 15:25 | EDM.PDOC ---
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 He was using a razor blade to remove some tape from a window. He slipped and cut his left index finger. He is right handed. He does not think his tetanus is up to date and he would like to have that up dated today. Onset: Sudden Duration: Minutes: Location: Reports: Upper Extremity, Left Quality: Reports: Burning Severity: Mild Improves with: Reports: None Worsens with: Reports: None Associated Symptoms: Reports: No Other Symptoms Left Finger-Index Pain Score (Numeric/FACES): 2 - Related Data Allergies Allergy/AdvReac Type Severity Reaction Status Date / Time Fish Containing Products Allergy Hives Verified 02/17/21 14:42 [id number] Reductase AdvReac Muscle Verified 02/17/21 14:42 Inhibitor Aches Home Meds: Home Meds Cetirizine [ZyrTEC] 10 mg PO DAILY 02/26/18 [History] Ezetimibe 10 mg PO DAILY 02/26/18 [History] Glucosam/Chondr/Collagn/Hyalur [Glucosamine & Chondroitin Cap] 1 cap PO DAILY 02/26/18 [History] Ketotifen [Ketotifen 0.025% Ophth Soln] 1 drop EYEBOTH DAILY 02/26/18 [History] Multivitamin [Daily Multiple Vitamin] 1 tab PO DAILY 02/26/18 [History] Nortriptyline HCl [Pamelor] 10 mg PO BID 02/26/18 [History] Potassium Citrate [Urocit-K] 10 meq PO BID 02/26/18 [History] SUMAtriptan succinate [Imitrex] 100 mg PO ASDIRECTED PRN 02/26/18 [History] allopurinoL [Zyloprim] 100 mg PO DAILY 02/26/18 [History] amLODIPine Besylate [Norvasc] 5 mg PO DAILY 02/26/18 [History] 5-Hydroxytryptophan (5-Htp) [Natrol 5-HTP] 50 mg PO DAILY 11/18/19 [History] Fish Oil/[place]-3 Fatty Acids [Fish Oil 1,000 MG] 1 gm PO DAILY 11/18/19 [History] Linagliptin [Tradjenta] 5 mg PO DAILY 11/18/19 [History] flaxseed oiL [Flaxseed Oil] 1,000 mg PO DAILY 11/18/19 [History] Acetaminophen/HYDROcodone [[place] 325-5 MG] 1 - 2 tab PO Q6H PRN #10 tablet 11/19/19 [Rx] Past Medical History HEENT History: Reports: Cataract, Hard of Hearing, Impaired Vision, Other (See Below) Other HEENT History: hearing aids, glasses Cardiovascular History: Reports: Hypertension Respiratory History: Reports: None Gastrointestinal History: Reports: Hemorrhoids Genitourinary History: Reports: Renal Calculus, Other (See Below) Other Genitourinary History: chronic kidney disease [employer] History: Reports: None Musculoskeletal History: Reports: Other (See Below) Other Musculoskeletal History: plantar nerve lsion, sicatica, back pain, carpal tunnel syndrome, gout Neurological History: Reports: Migraines, Vertigo, Other (See Below) Other Neuro History: CERVICLAGIA Psychiatric History: Reports: None Endocrine/Metabolic History: Reports: Diabetes, Type II Hematologic History: Reports: None Immunologic History: Reports: None Oncologic (Cancer) History: Reports: None Dermatologic History: Reports: None - Infectious Disease History Infectious Disease History: Reports: None - Past Surgical History Head Surgeries/Procedures: Reports: None HEENT Surgical History: Reports: Eye Surgery Cardiovascular Surgical History: Reports: None Respiratory Surgical History: Reports: None GI Surgical History: Reports: Cholecystectomy, Colonoscopy, Hernia Repair/Other Male Surgical History: Reports: None Endocrine Surgical History: Reports: None Neurological Surgical History: Reports: None Musculoskeletal Surgical History: Reports: Other (See Below) Other Musculoskeletal Surgeries/Procedures:: HAND SURGERY, ANKLE SURGERY, RIGHT TOTAL KNEE REPLACEMENT Oncologic Surgical History: Reports: None Dermatological Surgical History: Reports: None Social & Family History - Tobacco Use Tobacco Use Status *Q: Never Tobacco User Second Hand Smoke Exposure: No - Caffeine Use Caffeine Use: Reports: Coffee - Recreational Drug Use Recreational Drug Use: No ED ROS GENERAL - Review of Systems Review Of Systems: See Below Constitutional: Reports: No Symptoms HEENT: Reports: No Symptoms Respiratory: Reports: No Symptoms Cardiovascular: Reports: No Symptoms Endocrine: Reports: No Symptoms GI/Abdominal: Reports: No Symptoms : Reports: No Symptoms Musculoskeletal: Reports: Other (5cm laceration to the left idex finger) ED EXAM, SKIN/RASH Exam: See Below Exam Limited By: No Limitations General Appearance: Alert, No Apparent Distress Ears: Normal External Exam Nose: Normal Inspection Head: Atraumatic, Normocephalic Neck: Normal Inspection Respiratory/Chest: No Respiratory Distress Extremities: Other (5cm laceration to the left index finger on the dirsal aspect of the finger. Good sensation and capillary refill distally.) ED SKIN PROCEDURES - Laceration/Wound Repair Left Digit - 2nd (Index) Appearance: Superficial, Linear Distal NVT: Neuro & Vascular Intact, No Tendon Injury Anesthetic Type: Local Local Anesthesia - Lidocaine (Xylocaine): 1% Plain Skin Prep: Providone-Iodine (Betadine), Saline Exploration/Debridement/Repair: Wound Explored, In a Bloodless Field, Explored to Base Closed with: Sutures Lac/Wound length In cm: 5 Suture Size: 4-0 # of Sutures: 8 Suture Type: Nylon, Interrupted, Simple Tetanus Status Addressed: Yes Complications: No Course - Vital Signs Last Recorded V/S: Last Vital Signs Temp 98.0 F 02/17/21 14:40 Pulse 75 02/17/21 14:40 Resp 20 02/17/21 14:40 BP 164/80 H 02/17/21 14:40 Pulse Ox 96 02/17/21 14:40 - Orders/Labs/Meds Orders: Active Orders 24 hr Category Date Time Status Vaccines to be Administered [RC] PER UNIT ROUTINE Care 02/17/21 14:49 Active Meds: Medications Discontinued Medications Generic Name Dose Route Start Last Admin Trade Name Mahendraq PRN Reason Stop Dose Admin Diphtheria/Tetanus/Acell Pertussis 0.5 ml 02/17/21 14:49 02/17/21 14:54 Diphtheria,Pertussis(Acell),Tetanus Vaccine 0.5 Ml Syringe IM 02/17/21 14:50 0.5 ml .ONCE ONE Administration Lidocaine HCl 10 ml 02/17/21 14:46 02/17/21 14:54 Lidocaine 1% 10 Ml Mdv INJECT 02/17/21 14:47 10 ml ONETIME ONE Administration Lidocaine HCl 10 ml 02/17/21 15:08 02/17/21 15:13 Lidocaine 1% 10 Ml Mdv INJECT 02/17/21 15:09 10 ml ONETIME ONE Administration - Re-Assessments/Exams Free Text/Narrative Re-Assessment/Exam: 02/17/21 15:23 I ordered his tetanus to be up dated. Departure - Departure Time of Disposition: 15:30 Disposition: Home, Self-Care 01 Condition: Good Clinical Impression: Laceration of left index finger Qualifiers: Encounter type: initial encounter Damage to nail status: without damage Foreign body presence: without foreign body Qualified Code(s): S61.211A - Laceration without foreign body of left index finger without damage to nail, initial encounter - Discharge Information *PRESCRIPTION DRUG MONITORING PROGRAM REVIEWED*: Not Applicable *COPY OF PRESCRIPTION DRUG MONITORING REPORT IN PATIENT MANUELA: Not Applicable Referrals: Kb Valerio MD [Primary Care Provider] - Additional Instructions: Soak your finger in warm soapy water two times per day and apply antibiotic ointment after. Have the sutures removed within a week to 10 days. Look for any signs of infection such as redness, swelling, pain or discharge. Sepsis Event Note (ED) - Focused Exam Vital Signs: Vital Signs Temp Pulse Resp BP Pulse Ox 02/17/21 14:40 98.0 F 75 20 164/80 H 96 - My Orders Last 24 Hours: My Active Orders 02/17/21 14:49 Vaccines to be Administered [RC] PER UNIT ROUTINE - Assessment/Plan Last 24 Hours: My Active Orders 02/17/21 14:49 Vaccines to be Administered [RC] PER UNIT ROUTINE
== END 2021-02-17 15:37 | disposition home or self-care (01) ==
LOC: JD.ED 14:33
DX: S61.211A Laceration without foreign body of left index finger without damage to nail, initial encounter (principal); E11.22 Type 2 diabetes mellitus with diabetic chronic kidney disease; I12.9 Hypertensive chronic kidney disease with stage 1 through stage 4 chronic kidney disease, or unspecified chronic kidney disease; N18.9 Chronic kidney disease, unspecified; M10.9 Gout, unspecified; Z79.899 Other long term (current) drug therapy; Z91.013 Allergy to seafood; Z23 Encounter for immunization; Z88.8 Allergy status to other drugs, medicaments and biological substances; W26.8XXA Contact with other sharp object(s), not elsewhere classified, initial encounter
CPT/HCPCS: 12002; 90471; 90715; 99282; 99282-25

== ENCOUNTER 2021-11-02 06:14 | Emergency (ER) | payer MEDICARE, BC ==
[2021-11-02] MEDS ORDERED: Sodium Chloride 0.9% 10 ML Syringe FLUSH PRN ×2 (06:34→08:02)
[2021-11-02] MEDS ORDERED: Aspirin 81 MG Tab.Chew PO ONE (06:45)
[2021-11-02] MEDS ORDERED: Iopamidol 755 Mg/ML 100 ML Bottle IVPUSH ONE (08:02)
[2021-11-02] MEDS ORDERED: Sodium Chloride 0.9% 100 ML IV SCH (08:15)
== END 2021-11-02 09:10 | disposition home or self-care (01) ==
LOC: JD.ED 06:14
DX: R07.89 Other chest pain (principal); I12.9 Hypertensive chronic kidney disease with stage 1 through stage 4 chronic kidney disease, or unspecified chronic kidney disease; E11.22 Type 2 diabetes mellitus with diabetic chronic kidney disease; N18.9 Chronic kidney disease, unspecified; M10.9 Gout, unspecified; Z87.891 Personal history of nicotine dependence; Z91.013 Allergy to seafood; Z88.8 Allergy status to other drugs, medicaments and biological substances; Z79.899 Other long term (current) drug therapy
CPT/HCPCS: 36415; 71045; 71275; 80053; 83735; 84484; 85025; 85379; 85610; 93005; 99285; A9270; J3490; Q9967